=== PATIENT | female | born 1985 ===

== ENCOUNTER 2025-01-11 06:05 | Day surgery (SDC) | payer BC ==
[~2025-01-11] VITALS: Ht 172.7 cm; Wt 68.4 kg
[2025-01-11] VITALS (19 sets, daily range): BP systolic 93–120; BP diastolic 62–82
[2025-01-11] MEDS ORDERED: CeFAZolin Sodium 2,000 MG in NS 100 ML IV SCH (06:15)
[2025-01-11] MEDS ORDERED: Lactated Ringer's 1,000 ML IV SCH ×2 (06:15→09:25)
[2025-01-11] MEDS ORDERED: Bupivacaine 0.5% HCl 5 MG/ML 30MLVIAL ONE (06:57)
[2025-01-11] MEDS ORDERED: Lidocaine HCl 2% 20 ML MDV ONE (07:24)
[2025-01-11] MEDS ORDERED: FentaNYL Citrate 50 MCG/ML 2 ML Injection ONE ×3 (07:24→09:42)
[2025-01-11] MEDS ORDERED: Rocuronium Bromide 10 MG/ML 5ML Injection IV ONE ×2 (07:24→08:08)
[2025-01-11] MEDS ORDERED: propofoL 20 ML IV ONE (07:24)
[2025-01-11] MEDS ORDERED: Dexamethasone Sod Phos 10 MG/ML 1ML VIAL ONE (07:26)
--- NOTE | 2025-01-11 07:30 | NUR ---
Ambulatory in Day Surgery. History, Chart, Medications and Allergies reviewed before start of procedure. Lungs clear T/O to Auscultation. Patient confirms NPO status and agrees with scheduled surgery. Pre-Op teaching done. Pt verbalizes understanding. Patient States Post-Procedure ride home has been arranged. PT BELONGINGS PLACED UNDERNEATH GURNEY FOR SAFEKEEPING. PT SPOUSE TOOK BACKPACK FOR SAFEKEEPING. PT HAS RING ON LEFT HAND THAT CANNOT BE REMOVED. JEWELRY TAPED, JEWELRY WAIVER SIGNED, OR NOTIFIED.
[2025-01-11] MEDS ORDERED: Glycopyrrolate 0.2 MG/ML 5ML VIAL ONE (08:10)
[2025-01-11] MEDS ORDERED: Ondansetron HCl 2 MG / ML 2ML Vial ONE (08:46)
[2025-01-11] MEDS ORDERED: Sugammadex Sodium 200 MG/2ML SDV (100 MG/ML) ONE (08:49)
[2025-01-11] MEDS ORDERED: OxyCODONE HCL 5 MG TAB PO PRN (09:20)
[2025-01-11] MEDS ORDERED: Simethicone 80 MG Chew PO PRN (09:25)
[2025-01-11] MEDS ORDERED: Naloxone HCl 0.4MG / ML 1ML Vial IV PRN (09:25)
[2025-01-11] MEDS ORDERED: Ondansetron HCl 2 MG / ML 2ML Vial IV PRN (09:25)
[2025-01-11] MEDS ORDERED: Metoclopramide HCl 10 MG Tab PO PRN (09:25)
[2025-01-11] MEDS ORDERED: Ondansetron 4 MG TAB PO PRN (09:25)
[2025-01-11] MEDS ORDERED: Metoclopramide HCl 5MG / ML 2ML Vial IV PRN (09:25)
[2025-01-11] MEDS ORDERED: FLU VACC TS2024-25(6MOS UP)/PF 45 MCG/0.5 ML SYRINGE IM PRN (09:30)
[2025-01-11] MEDS ORDERED: HYDROmorphone HCl/Pf 1MG SYR IV PRN (09:30)
[2025-01-11] MEDS ORDERED: DiphenhydrAMINE HCL 25 MG Cap PO PRN (09:30)
[2025-01-11] MEDS ORDERED: Ketorolac Tromethamine 30mg Vial IV PRN ×2 (09:35→09:55)
[2025-01-11] MEDS ORDERED: Ketorolac Tromethamine 30mg Vial ONE (09:42)
[2025-01-11] MEDS ORDERED: Acetaminophen 325 MG TABLET PO ONE (10:00)
--- NOTE | 2025-01-11 11:03 | NUR ---
PT ARRIVED TO UNIT FROM PACU TRANSFERRED PT FROM [facility] TO BED. ORIENTED TO USE OF CALL LIGHT. VSS. LAP INCISIONS X4 TO ABD W/TISS ADHESIVE CDI. LILLY PAD CLEAN. PROVIDED WATER AND JELLO. KPAD FOR COMFORT. PT REPORTS PAIN TOLERABLE, RATING 2/10. RESTING IN BED, CALL LIGHT IN REACH, SPOUSE BEDSIDE.
[2025-01-11] MEDS ORDERED: Acetaminophen325 M1 PO (14:54)
[2025-01-11] MEDS ORDERED: IBUP800 PO (14:55)
[2025-01-11] MEDS ORDERED: Acetaminophen 325 MG TABLET PO PRN (16:00)
--- NOTE | 2025-01-11 16:02 | NUR ---
DISCHARGED PT PAIN TOLERABLE, VSS. TOLERATED LUNCH. PASSED VOIDING TRIAL/PVR. IV DC'D. PT DESIRED TO DC HOME. REVIEWED DC INSTRUCTIONS W/PT; VERBLALIZED UNDERSTANDING. PT LEFT UNIT IN WC W/POSSESSIONS AND DC PAPERWORK IN HAND, ACCOMPANIED BY SPOUSE.
== END 2025-01-11 15:57 | disposition home or self-care (01) ==
LOC: ORSCMMR 06:05 → ORD 07:30 → SURS 10:22 → ORSCMMR 15:57
PROVIDERS: Obstetrics & Gynecology
PROC: 0UT9FZZ Resection of Uterus, Via Natural or Artificial Opening With Percutaneous Endoscopic Assistance (ICD-10-PCS; principal; 2025-01-11 07:30)
DX: N80.03 Adenomyosis of the uterus (principal); N93.9 Abnormal uterine and vaginal bleeding, unspecified
CPT/HCPCS: 86850; 86900; 86901; 88307; A9270; J0690; J1100; J1885; J2405; J2704; J3010; J7120